=== PATIENT | female | born 1945 | race Caucasian/White ===

== ENCOUNTER → 2019-03-23 | Outpatient (CLI) | payer MEDICARE, BC ==
[2019-03-23 10:35] LABS: EOS % 0.7 % (1.0-5.0); HEMATOCRIT 40.8 % (37.0-47.0); HEMOGLOBIN 12.9 g/dL (12.5-16.0); LYMPH# 1.1 (1.50-4.00); MEAN CELL VOLUME 95 fl (78-100); MEAN CORPUSCULAR HEMOGLOBIN 30 pg (27-31); MEAN CORPUSCULAR HGB CONC 32 g/dL (33-37); MEAN PLATELET VOLUME 10.2 fl (7.4-10.4); MONO # 0.6 (0.20-0.80); NEU # 3.8 (1.40-6.50); PLATELET COUNT 245 K/mm3 (130-400); RED CELL DISTRIBUTION WIDTH 12.9 % (11.5-14.5); WHITE BLOOD COUNT 5.5 K/mm3 (4.8-10.8)
[2019-03-23 10:36] LABS: POTASSIUM 4.6 mmol/L (3.5-5.1)
[2019-03-23 10:37] LABS: CALCIUM 9.7 mg/dL (8.3-10.5)
[2019-03-23 10:39] LABS: TOTAL PROTEIN 6.9 g/dL (6.2-8.1)
[2019-03-23 10:41] LABS: TOTAL BILIRUBIN 0.4 mg/dL (0.2-1.2)
== END ==
LOC: LAB 09:59
PROVIDERS: Family Medicine
DX: Z00.00 Encounter for general adult medical examination without abnormal findings (principal); Z13.220 Encounter for screening for lipoid disorders; M25.552 Pain in left hip; E78.5 Hyperlipidemia, unspecified

== ENCOUNTER → 2019-03-28 | Outpatient (CLI) | payer MEDICARE, BC | LOC: RAD 06:56 | DX: M48.07 Spinal stenosis, lumbosacral region (principal); M47.816 Spondylosis without myelopathy or radiculopathy, lumbar region; M51.36 Other intervertebral disc degeneration, lumbar region; M51.26 Other intervertebral disc displacement, lumbar region; M25.552 Pain in left hip ==

== ENCOUNTER → 2019-05-08 | Outpatient (CLI) | payer MEDICARE, BC | LOC: MAMMO 15:12 | DX: Z12.31 Encounter for screening mammogram for malignant neoplasm of breast (principal) ==

== ENCOUNTER → 2019-08-22 | Outpatient (CLI) | payer MEDICARE, BC | LOC: RAD 06:56 | DX: M51.16 Intervertebral disc disorders with radiculopathy, lumbar region (principal) ==

== ENCOUNTER 2019-09-25 13:58 | Emergency (ER) | payer MEDICARE, BC ==
[~2019-09-25] VITALS: Ht 172.7 cm; Wt 81.8 kg
[2019-09-25] MEDS ORDERED: LISINOPRIL10 MG PO (14:08)
[2019-09-25] MEDS ORDERED: HYDROCHLOROTHIA1 T15 PO (14:08)
[2019-09-25] MEDS ORDERED: AMBIEN5 M1 PO (14:08)
[2019-09-25 15:00] LABS: HEMATOCRIT 34.5 % (37.0-47.0); HEMOGLOBIN 9.9 g/dL (12.5-16.0); MEAN CELL VOLUME 84 fl (78-100); MEAN CORPUSCULAR HEMOGLOBIN 24 pg (27-31); MEAN CORPUSCULAR HGB CONC 29 g/dL (33-37); MEAN PLATELET VOLUME 10.1 fl (7.4-10.4); PLATELET COUNT 247 K/mm3 (130-400); RED BLOOD COUNT 4.13 M/mm3 (4.10-5.30); RED CELL DISTRIBUTION WIDTH 15.2 % (11.5-14.5); WHITE BLOOD COUNT 4.9 K/mm3 (4.8-10.8)
[2019-09-25 15:06] LABS: LYMPHOCYTE 20 % (20-51); MONOCYTE 12 % (3-10); NEUTROPHILS 65 % (42-75)
[2019-09-25 15:08] LABS: POTASSIUM 3.8 mmol/L (3.5-5.1); SODIUM 140 mmol/L (136-145)
[2019-09-25 15:09] LABS: URINE APPEARANCE CLEAR; URINE BILIRUBIN NEGATIVE (NEGATIVE); URINE BLOOD NEGATIVE (NEGATIVE); URINE COLOR YELLOW; URINE GLUCOSE NEGATIVE (NEGATIVE); URINE KETONE NEGATIVE (NEGATIVE); URINE LEUKOCYTE ESTERASE TRACE (NEGATIVE); URINE MUCUS PRESENT (NOT PRESENT); URINE NITRATE NEGATIVE (NEGATIVE); URINE PROTEIN(semi-quant) NEGATIVE (NEGATIVE); URINE UROBILINOGEN NORMAL (NORMAL)
[2019-09-25 15:09] LABS: CALCIUM 9.2 mg/dL (8.3-10.5)
[2019-09-25 15:10] LABS: GLUCOSE 119 mg/dL (65-105)
[2019-09-25 15:11] LABS: TOTAL PROTEIN 6.4 g/dL (6.2-8.1)
[2019-09-25 15:12] LABS: CARBON DIOXIDE 25 mmol/L (23-31); TOTAL BILIRUBIN 0.3 mg/dL (0.2-1.2)
[2019-09-25 15:16] LABS: AST-SGOT 15 U/L (5-34)
[2019-09-25 15:17] LABS: ALT/SGPT 11 U/L (0-55); D-DIMER 4.32 mg/L FEU (0.15-0.50)
[2019-09-25 15:24] LABS: TROPONIN-I < 0.03 ng/mL (<0.030)
[2019-09-25 19:38] VITALS: BP 140/78
== END 2019-09-25 19:38 | disposition home or self-care (01) ==
LOC: ED 13:58
PROVIDERS: Nurse Practitioner Family
DX: I26.99 Other pulmonary embolism without acute cor pulmonale (principal); R91.1 Solitary pulmonary nodule; I10 Essential (primary) hypertension
CPT/HCPCS: J1650; J3360; J7030; Q9967

== ENCOUNTER → 2020-01-24 | Outpatient (CLI) | payer MEDICARE, BC ==
[~2020-01-24] MED LIST: AMBIEN5 M1 PO; HYDROCHLOROTHIA1 T15 PO; LISINOPRIL10 MG PO
== END ==
LOC: RAD 09:26
DX: M16.12 Unilateral primary osteoarthritis, left hip (principal)

== ENCOUNTER → 2020-04-04 | Outpatient (CLI) | payer MEDICARE, BC ==
[2020-04-04 14:01] LABS: EOS # 0.1 (0.04-0.40); EOS % 1.3 % (1.0-5.0); HEMATOCRIT 41.3 % (37.0-47.0); HEMOGLOBIN 12.6 g/dL (12.5-16.0); LYMPH# 1.3 (1.50-4.00); MEAN CELL VOLUME 88 fl (78-100); MEAN CORPUSCULAR HEMOGLOBIN 27 pg (27-31); MEAN CORPUSCULAR HGB CONC 31 g/dL (33-37); MEAN PLATELET VOLUME 10.3 fl (7.4-10.4); MONO # 0.5 (0.20-0.80); NEU # 2.9 (1.40-6.50); PLATELET COUNT 213 K/mm3 (130-400); RED BLOOD COUNT 4.72 M/mm3 (4.10-5.30); WHITE BLOOD COUNT 4.8 K/mm3 (4.8-10.8)
[2020-04-04 14:11] LABS: POTASSIUM 4.1 mmol/L (3.5-5.1)
[2020-04-04 14:12] LABS: ALBUMIN 4.1 g/dL (3.4-4.8)
[2020-04-04 14:13] LABS: CALCIUM 9.3 mg/dL (8.3-10.5)
[2020-04-04 14:14] LABS: TOTAL PROTEIN 6.9 g/dL (6.2-8.1)
[2020-04-04 14:16] LABS: TOTAL BILIRUBIN 0.2 mg/dL (0.2-1.2)
== END ==
LOC: LAB 13:52
PROVIDERS: Physician Assistant
DX: Z00.00 Encounter for general adult medical examination without abnormal findings (principal); I10 Essential (primary) hypertension; E78.5 Hyperlipidemia, unspecified; G47.00 Insomnia, unspecified; M19.90 Unspecified osteoarthritis, unspecified site

== ENCOUNTER → 2020-05-13 | Outpatient (CLI) | payer MEDICARE, BC | LOC: MAMMO 10:37 | DX: Z12.31 Encounter for screening mammogram for malignant neoplasm of breast (principal) ==

== ENCOUNTER → 2020-11-26 | Outpatient (CLI) | payer MEDICARE, BC ==
[2020-06-04 15:48] VITALS: BP 142/74
[~2020-11-26] MED LIST changes: +CALCIUM500 M1 PO; +OSTEO BI-FLEX1 EAC1 PO; +TYLENOL325 M1 PO; +XARELTO20 MG PO
--- NOTE | 2020-11-26 10:58 | NUR ---
EKG COMPLETE. REPORT [facility]
[2020-11-26 11:10] LABS: BASO # 0.02 (0.02-0.10); EOS # 0.04 (0.04-0.40); EOS % 0.8 % (1.0-5.0); HEMATOCRIT 46.4 % (37.0-47.0); LYMPH# 1.14 (1.50-4.00); MEAN CELL VOLUME 95 fl (78-100); MEAN CORPUSCULAR HEMOGLOBIN 31 pg (27-31); MEAN CORPUSCULAR HGB CONC 32 g/dL (33-37); MEAN PLATELET VOLUME 10.8 fl (7.4-10.4); MONO # 0.43 (0.20-0.80); PLATELET COUNT 192 K/mm3 (130-400); RED BLOOD COUNT 4.89 M/mm3 (4.10-5.30); RED CELL DISTRIBUTION WIDTH 12.8 % (11.5-14.5); WHITE BLOOD COUNT 4.7 K/mm3 (4.8-10.8)
[2020-11-26 11:14] LABS: ALBUMIN 4.1 g/dL (3.4-4.8); POTASSIUM 4.3 mmol/L (3.5-5.1)
[2020-11-26 11:15] LABS: CALCIUM 9.3 mg/dL (8.3-10.5)
[2020-11-26 11:16] LABS: TOTAL PROTEIN 6.8 g/dL (6.2-8.1)
[2020-11-26 11:18] LABS: TOTAL BILIRUBIN 0.7 mg/dL (0.2-1.2)
[2020-11-26 11:26] LABS: URINE APPEARANCE CLEAR; URINE BILIRUBIN NEGATIVE (NEGATIVE); URINE BLOOD NEGATIVE (NEGATIVE); URINE COLOR YELLOW; URINE GLUCOSE NEGATIVE (NEGATIVE); URINE KETONE NEGATIVE (NEGATIVE); URINE LEUKOCYTE ESTERASE NEGATIVE (NEGATIVE); URINE NITRATE NEGATIVE (NEGATIVE); URINE PROTEIN(semi-quant) NEGATIVE (NEGATIVE); URINE UROBILINOGEN NORMAL (NORMAL); URINE WBC 0-1 /hpf (0-3)
[2020-11-26 11:35] LABS: PROTHROMBIN TIME 9.5 SECONDS (9.0-12.0)
== END ==
LOC: LAB 10:09 → RAD 10:09
PROVIDERS: Family Medicine
DX: Z01.89 Encounter for other specified special examinations (principal)

== ENCOUNTER → 2021-05-04 | Outpatient (CLI) | payer MEDICARE, BC ==
[2021-05-04 14:39] LABS: BASO # 0.02 K/mm3 (0.02-0.10); EOS # 0.05 K/mm3 (0.04-0.40); EOS % 0.9 % (1.0-5.0); HEMATOCRIT 45.4 % (37.0-47.0); HEMOGLOBIN 14.5 g/dL (12.5-16.0); LYMPH# 1.21 K/mm3 (1.50-4.00); MEAN CELL VOLUME 95 fl (78-100); MEAN CORPUSCULAR HEMOGLOBIN 30 pg (27-31); MEAN CORPUSCULAR HGB CONC 32 g/dL (33-37); MEAN PLATELET VOLUME 10.5 fl (7.4-10.4); MONO # 0.55 K/mm3 (0.20-0.80); NEU # 3.59 K/mm3 (1.40-6.50); PLATELET COUNT 211 K/mm3 (130-400); RED BLOOD COUNT 4.79 M/mm3 (4.10-5.30); RED CELL DISTRIBUTION WIDTH 13.3 % (11.5-14.5); WHITE BLOOD COUNT 5.4 K/mm3 (4.8-10.8)
[2021-05-04 14:47] LABS: ALBUMIN 3.9 g/dL (3.4-4.8); POTASSIUM 4.3 mmol/L (3.5-5.1)
[2021-05-04 14:48] LABS: CALCIUM 9.6 mg/dL (8.3-10.5)
[2021-05-04 14:50] LABS: TOTAL PROTEIN 6.9 g/dL (6.2-8.1)
[2021-05-04 14:51] LABS: TOTAL BILIRUBIN 0.4 mg/dL (0.2-1.2)
== END ==
LOC: LAB 14:24
PROVIDERS: Family Medicine
DX: Z00.00 Encounter for general adult medical examination without abnormal findings (principal); E78.5 Hyperlipidemia, unspecified

== ENCOUNTER → 2021-05-26 | Outpatient (CLI) | payer MEDICARE, BC | LOC: MAMMO 13:00 | DX: Z12.31 Encounter for screening mammogram for malignant neoplasm of breast (principal) ==

== ENCOUNTER → 2021-08-26 | Outpatient (CLI) | payer MEDICARE, BC | LOC: RAD 09:58 | DX: J34.89 Other specified disorders of nose and nasal sinuses (principal) ==

== ENCOUNTER → 2022-05-05 | Outpatient (CLI) | payer MEDICARE, BC ==
[2022-05-05 15:33] LABS: BASO # 0.01 K/mm3 (0.02-0.10); EOS # 0.06 K/mm3 (0.04-0.40); EOS % 1.1 % (1.0-5.0); HEMATOCRIT 46.3 % (37.0-47.0); HEMOGLOBIN 14.9 g/dL (12.5-16.0); LYMPH# 1.48 K/mm3 (1.50-4.00); MEAN CELL VOLUME 95 fl (78-100); MEAN CORPUSCULAR HEMOGLOBIN 31 pg (27-31); MEAN CORPUSCULAR HGB CONC 32 g/dL (33-37); MEAN PLATELET VOLUME 10.7 fl (7.4-10.4); MONO # 0.51 K/mm3 (0.20-0.80); NEU # 3.53 K/mm3 (1.40-6.50); PLATELET COUNT 191 K/mm3 (130-400); RED BLOOD COUNT 4.87 M/mm3 (4.10-5.30); RED CELL DISTRIBUTION WIDTH 13.1 % (11.5-14.5); WHITE BLOOD COUNT 5.6 K/mm3 (4.8-10.8)
[2022-05-05 15:45] LABS: ALBUMIN 4.2 g/dL (3.4-4.8); POTASSIUM 4.1 mmol/L (3.5-5.1)
[2022-05-05 15:46] LABS: CALCIUM 9.8 mg/dL (8.3-10.5)
[2022-05-05 15:47] LABS: TOTAL PROTEIN 6.9 g/dL (6.2-8.1)
[2022-05-05 15:49] LABS: TOTAL BILIRUBIN 0.5 mg/dL (0.2-1.2)
== END ==
LOC: LAB 15:11
PROVIDERS: Family Medicine
DX: Z00.00 Encounter for general adult medical examination without abnormal findings (principal); Z12.39 Encounter for other screening for malignant neoplasm of breast; Z12.11 Encounter for screening for malignant neoplasm of colon; M51.36 Other intervertebral disc degeneration, lumbar region; M54.31 Sciatica, right side; I10 Essential (primary) hypertension; G47.00 Insomnia, unspecified; M19.90 Unspecified osteoarthritis, unspecified site; E66.3 Overweight; E78.5 Hyperlipidemia, unspecified; J30.2 Other seasonal allergic rhinitis

== ENCOUNTER → 2022-06-01 | Outpatient (CLI) | payer MEDICARE, BC | LOC: MAMMO 13:45 | DX: Z12.31 Encounter for screening mammogram for malignant neoplasm of breast (principal) ==

== ENCOUNTER → 2023-04-26 | Outpatient (CLI) | payer MEDICARE, BC ==
[~2023-04-26] MED LIST changes: +BENADRYL PO; +DIOVAN 80MG80 MG PO; +LASIX20 M1 PO; +LIDOCAINE PAIN1 EACH TP; +NAMENDA10 MG PO; +PERCOCET 325 MG1 TA2 PO; +PREDNISONE20 M1 PO; +SENNA8.6 M1 PO; +TAPAZOLE 5MG TAB5 MG PO; +WARFARIN SOD2 MG PO; +ZYRTEC ALLERGY10 MG PO
== END ==
LOC: AMSURD 09:59
DX: Z01.89 Encounter for other specified special examinations (principal)

== ENCOUNTER → 2023-05-11 | Day surgery (SDC) | payer MEDICARE, BC | END | disposition home or self-care (01) | LOC: MSO 09:48 | DX: H25.811 Combined forms of age-related cataract, right eye (principal) | CPT/HCPCS: 00142; J0171; J2250; V2632 ==

== ENCOUNTER → 2023-06-07 | Day surgery (SDC) | payer MEDICARE, BC | END | disposition home or self-care (01) | LOC: MSO 07:27 | DX: H25.812 Combined forms of age-related cataract, left eye (principal) | CPT/HCPCS: 00142; J0171; J2250; V2632 ==

== ENCOUNTER → 2024-06-12 | Outpatient (CLI) | payer MEDICARE, BC ==
[2024-06-12 13:59] LABS: BASO # 0.02 K/mm3 (0.02-0.10); EOS # 0.07 K/mm3 (0.04-0.40); EOS % 1.5 % (1.0-5.0); HEMATOCRIT 44.9 % (37.0-47.0); HEMOGLOBIN 14.2 g/dL (12.5-16.0); LYMPH# 1.17 K/mm3 (1.50-4.00); MEAN CELL VOLUME 95 fl (78-100); MEAN CORPUSCULAR HEMOGLOBIN 30 pg (27-31); MEAN CORPUSCULAR HGB CONC 32 g/dL (33-37); MEAN PLATELET VOLUME 10.4 fl (7.4-10.4); MONO # 0.32 K/mm3 (0.20-0.80); NEU # 3.08 K/mm3 (1.40-6.50); PLATELET COUNT 198 K/mm3 (130-400); RED BLOOD COUNT 4.72 M/mm3 (4.10-5.30); RED CELL DISTRIBUTION WIDTH 13.6 % (11.5-14.5); WHITE BLOOD COUNT 4.7 K/mm3 (4.8-10.8)
[2024-06-12 14:04] LABS: CALCIUM 9.5 mg/dL (8.3-10.5)
[2024-06-12 14:05] LABS: TOTAL PROTEIN 6.3 g/dL (6.2-8.1)
[2024-06-12 14:07] LABS: TOTAL BILIRUBIN 0.4 mg/dL (0.2-1.2)
[2024-06-13 06:55] LABS: HEPATITIS C VIRUS ANTIBODY Nonreactive (Nonreactiv)
== END ==
LOC: LAB 13:42
PROVIDERS: Family Medicine
DX: Z11.59 Encounter for screening for other viral diseases (principal); E78.5 Hyperlipidemia, unspecified; I10 Essential (primary) hypertension; E55.9 Vitamin D deficiency, unspecified

== ENCOUNTER → 2024-07-02 | Outpatient (CLI) | payer MEDICARE, BC | LOC: MAMMO 09:29 | DX: Z12.31 Encounter for screening mammogram for malignant neoplasm of breast (principal) ==